=== PATIENT | male | born 1960 | race Caucasian/White ===

== ENCOUNTER 2024-08-17 14:23 | Outpatient (AMB) | payer BC, SELFPAY ==
--- NOTE | 2024-08-17 14:38 | MHC.PC.OV ---
Vital Signs 08/17/24 14:49 Height 5 ft 11.06 in Weight 251 lb BMI 34.9 BP 124/78 Blood Pressure Location Rt brachial Position Sitting Respiration 14 Pulse 82 Pulse Source Pulse Oximeter Temp 97.2 F Temp Source Oral Pulse Oximetry (%) 97 Oxygen Delivery Method Room Air Intake Visit Reasons: est care/requesting pe Intake Note: New patient visit. Tumbler Tender Required: No Allergies No Known Allergies Allergy (Verified 08/17/24 14:41) Medication List - Last Reconciled 08/17/24 by Debbie Sanders PA-C No Known Home Meds Tobacco use date assessed: 08/17/24 Dental Screening Dental Screen Date: 08/17/24 Did you have a dental visit in the last 12 months?: Yes Did you have a dental problem in the last 6 months where you did not have access to dental care?: No Was dental information given to patient?: Patient has dentist HPI est care/requesting pe HPI Details Patient is a 63-year-old male who presents today to [facility]. He is transferring from [facility]. CV: Blood pressure today in the office is 124/78. He is not on any antihypertensives or statin. No chest pain, shortness on breath or palpitations. Neuro: three years ago he noted toes felt cold. He states he had an exam at that time and nothing was noted to be abnormal. He states he gets tingling in the feet now x 1.5 years. No weakness, no pain from back, no numbness, discoloration, infections. MSK:He has noted over the last few months the right leg is larger than the left. He states it is at times achy in the calf. Swelling is worse by the end of day and better in the morning. No skin discoloration. He denies any trauma. Colonoscopy: overdue by year PSA: Overdue PFSH Family History (Updated 08/17/24 @ 14:55 by Melanie Crooks CMA) Mother HTN (hypertension) High blood cholesterol Diabetes Father Pacemaker Maternal Grandmother Breast cancer Skin cancer Paternal Grandfather No problems noted. Sister Diabetes Social History (Updated 08/17/24 @ 14:55 by Melanie Crooks CMA) Housing: Condominium Alcohol intake: current Patient Tobacco Use Status: Never used Tobacco e-Cigarette/Vaping Use: Never Used Second Hand Smoke Exposure: No service: No Current occupational status: employed Current occupation: school administer. Current occupational exposures/hazards: Yes Cognitive needs: No Hearing needs: No Vision needs: Yes (reading glasses ) Questionnaire PHQ-9 Over the last 2 weeks, how often have you been bothered by any of the following problems? 1. Little interest or pleasure in doing things: not at all 2. Feeling down, depressed, or hopeless: not at all 3. Trouble falling or staying asleep, or sleeping too much: several days 4. Feeling tired or having little energy: not at all 5. Poor appetite or overeating: not at all 6. Feeling bad about yourself - or that you are a failure or have let yourself or your family down: not at all 7. Trouble concentrating on things, such as reading the newspaper or watching television: not at all 8. Moving or speaking so slowly that other people could have noticed. Or the opposite - being so fidgety or restless that you have been moving around a lot more than usual: not at all 9. Thoughts that you would be better off or of hurting yourself in some way: not at all Total score: 1 Depression Screening Interpretation: Negative Depression Screening Done: Yes 11998 - PHQ-9 Billing: Yes Source: Developed by Drs. Yefri Dawson, Catrina De La Paz, Byron Ramos and colleagues, with an educational nacho from [employer]. Thrive Questionnaire Date Thrive assessed: 08/17/24 I am a: Patient What is your living situation today?: I have a steady place to live Within the past 12 months, did the food you bought not last and you didn't have the money to get more?: Never true Within the past 12 months, did you worry whether your food would run out before you got money to buy more?: Never true Do you have trouble paying for medicines?: No Do you have trouble getting transportation to medical appointments?: No Do you have trouble paying your heating and electricity bill?: No Do you have trouble taking care of your child, family member or friend?: No Do you have trouble with day-to-day activities such as bathing, preparing meals, shopping, managing finances, etc.?: No Are you currently unemployed and looking for a job?: No Are you interested in more education?: No Please select the resources that you would like help with: None Currently or been in a relationship where the following occur: No concerns reported THRIVE Score: 0 AUDIT C Alcohol Use Questionnaire (AUDIT-C) 1. How often do you have a drink containing alcohol?: 2-3 times a week 2. How many drinks containing alcohol do you have on a typical day when you are drinking?: 1 or 2 3. How often do you have six or more drinks on one occasion?: Less than monthly Total Score: 4 URSULA-7 AMB Questionnaire URSULA-7 Date URSULA - 7 assessed: 08/17/24 Feeling nervous, anxious, or on edge: 0 = Not at all Not being able to stop or control worryin = Not at all Worrying too much about different things: 0 = Not at all Trouble relaxin = Not at all Being so restless that it is hard to sit still: 0 = Not at all Becoming easily annoyed or irritable: 0 = Not at all Feeling afraid as if something awful might happen: 0 = Not at all Total URSULA-7 score (0-4 normal; 5-9 mild; 10-14 moderate; 15-21 severe): 0 Source: Developed by Drs. Yefri Dawson, Catrina De La Paz, Byron Ramos and colleagues, with an educational nacho from [employer]. URSULA-7 Assessment Billing URSULA-7 Assessment Tool: URSULA-7 Assessment 72498 Physical exam (Primary Care) Vital Signs: Last Vital Signs Temp 97.2 F 08/17/24 14:49 Pulse 82 08/17/24 14:49 Resp 14 08/17/24 14:49 BP 124/78 08/17/24 14:49 Pulse Ox 97 08/17/24 14:49 Oxygen Delivery Method Room Air 08/17/24 14:49 BMI result Body Mass Index 34.9 Tobacco/Smoking Status: Tobacco use Status Tobacco use date assessed 08/17/24 08/17/24 14:45 Patient Tobacco Use Status Never used Tobacco 08/17/24 14:55 e-Cigarette/Vaping Use Never Used 08/17/24 14:55 PHQ-9: PHQ-9 Score PHQ-9: Total score 1 08/17/24 15:13 Depression Screening Interpretation: Negative Thrive Assessment: Date of Thrive Assessment Date Thrive assessed 08/17/24 08/17/24 14:55 Currently or been in a relationship where the following occur: No concerns reported Const Orientation/consciousness: patient oriented x3 HENMT Ears: hearing grossly normal bilaterally Neck Thyroid: Thyroid normal Lymphatic: no lymphadenopathy noted Resp Auscultation: clear to auscultation bilaterally Cardio Rate: regular rate Rhythm: regular rhythm Heart sounds: S1 normal heart sound present and S2 normal heart sound present GI Inspection: Yes normal to inspection Palpation (GI): Soft to palpation and Other GI palpation findings present (nontender, no cva tenderness) Auscultation: normoactive bowel sounds Rectal Exam - Male: Yes deferred Skin General skin exam: no rashes or lesions noted Neuro Other: Vibratory sensation intact General: patient oriented x3, gait normal, moves all extremities, Normal light touch and pain sensation, no focal motor deficits, normal sensation to monofilament and deep tendon reflexes 2+ bilaterally Motor exam (neuro): 5/5 motor strength present throughout Extrem Other: Right calf is41.5 cm and left calf 37.5. DP pulses 2+ bilaterally. General: Yes capillary refill normal Coding Level of Care Code New Pt Level 4 (96269) Complex EM visit Add On G2211 Diagnoses Dyslipidemia E78.5 Peripheral neuropathy G62.9 Skin lesion L98.9 Pain and swelling of right lower leg M79.661; M79.89 Additional Codes URSULA-7 Assessment Billing - URSULA-7 Assessment Tool: URSULA-7 Assessment 04458 ([id number]) PHQ-9 - 50728 - PHQ-9 Billing: Yes ([id number]) Assessment & Plan Assessment & Plan (1) Dyslipidemia: Code(s): E78.5 - Hyperlipidemia, unspecified Category: Medical Plan: We will check labs today (2) Peripheral neuropathy: Code(s): G62.9 - Polyneuropathy, unspecified Category: Medical Plan: Labs ordered Appears neurovascularly intact today EMG ordered (3) Skin lesion: Code(s): L98.9 - Disorder of the skin and subcutaneous tissue, unspecified Category: Medical Plan: Referral to [facility] (4) Pain and swelling of right lower leg: Code(s): M79.661 - Pain in right lower leg; M79.89 - Other specified soft tissue disorders Category: Medical Plan: Ultrasound ordered Plan referral to GI for colonoscopy Short term follow up. Sooner if needed. Patient understands and agrees with the plan. Orders: Orders Complete Blood Count Auto Diff 08/17/24 E78.5 - Hyperlipidemia, unspecified, G62.9 - Polyneuropathy, unspecified Lipid Panel 08/17/24 E78.5 - Hyperlipidemia, unspecified, G62.9 - Polyneuropathy, unspecified TSH reflex Free T4 08/17/24 E78.5 - Hyperlipidemia, unspecified, G62.9 - Polyneuropathy, unspecified UA CC w/rflx Micro + Cult 08/17/24 E78.5 - Hyperlipidemia, unspecified, G62.9 - Polyneuropathy, unspecified, Z13.220 - Encounter for screening for lipoid disorders US venous duplex LE RT 08/17/24 M79.661 - Pain in right lower leg, M79.89 - Other specified soft tissue disorders Comprehensive [place]. Panel Fast 08/17/24 E78.5 - Hyperlipidemia, unspecified, G62.9 - Polyneuropathy, unspecified Hemoglobin A1c 08/17/24 E78.5 - Hyperlipidemia, unspecified, G62.9 - Polyneuropathy, unspecified, R73.01 - Impaired fasting glucose Vitamin B12 and Folate 08/17/24 E78.5 - Hyperlipidemia, unspecified, G62.9 - Polyneuropathy, unspecified IRON PROFILE 08/17/24 E78.5 - Hyperlipidemia, unspecified, G62.9 - Polyneuropathy, unspecified Lyme IgG/IgM w/reflex to WB 08/17/24 E78.5 - Hyperlipidemia, unspecified, G62.9 - Polyneuropathy, unspecified Prostate Specific Antigen Scr 08/17/24 Z01.89 - Encounter for other specified special examinations NE electromyogram (EMG) Today G62.9 - Polyneuropathy, unspecified Referrals Gastroenterology Referral Z12.11 - Encounter for screening for malignant neoplasm of colon Dermatology Referral L98.9 - Disorder of the skin and subcutaneous tissue, unspecified
[2024-08-17 14:49] VITALS: BP 124/78; PULSE 82; RESP 14; TEMP 36.2; O2SAT 97; BMI 34.9
--- OUTSIDE RECORDS SUMMARY | 2024-08-17 15:37 | XMS_ITS | Data Portability ---
Author Organization ANNITA Mckenna [facility], [address] Address [address] [place] [address] Care Team Providers Care Chair Lift Operator Name Role Phone PauloSYED ERICH Primary Care Provider Assessment No assessment recorded. Plan of Treatment Reminders Order Date Submit Date Provider Last Modified By Organization Details Last Modified Time Details Appointments None recorded. Lab None recorded. Referral dermatologi st referral 2023 024 [email or web address] [facility], [address], [place], [address], 4 13:54:26 Procedures None recorded. Surgeries None recorded. Imaging None recorded. Medication Orders fluticasone propionate 50 mcg/actuati on nasal spray,suspe nsion 2023 024 [email or web address] [facility]/Pharmacy #[id number], [address] [place], [address], 4 16:12:34 triamcinolo ne acetonide 0.1 % topical cream 2023 024 [facility]/Pharmacy #[id number], [address] [place], [address], 4 13:52:01 prednisone 10 mg tablet 2022 024 [facility]/Pharmacy #[id number], [address] [place], [address], 4 13:37:50 Patient TargetsNo targets recorded. Patient Instructions Encounter Date Encounter Id Patient Instructions Last Modified By Organization Details Last Modified Time 11/04/2022 [id number] poison devon, oak, and sumac: care instructions [email or web address] Not available 11/04/2022 17:00:40 06/30/2023 [id number] hives: care instructions [email or web address] Not available 06/30/2023 13:50:29 dermatitis: care instructions [email or web address] Not available 06/30/2023 13:51:59 Based on your presentation and exam - I am diagnosis you with Contact Dermatitis This most likely can be related to dyes or environmental exposures. The following recommendations will help you with your symptoms.: 1. Cool Compresses to the itchy areas. Heat will only make the rash. 2. Do not scratch or itch - this can lead to infection. 3. Take Antihistamines - like benadryl - this will help - but when the medications wear off the redness might return. You need to go directly to the ER if you develop: 1. Wheezing 2. Throat or tongue swelling 3. Difficulty breathing 4. If you pass out. 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 Procedure Notes None recorded. Medical Equipment None Reported. Allergies No known drug allergies Medications Name Sig Start Date Stop Date Status Note LastModified by Organization Details LastModified Time budesonide 32 mcg/actuati on nasal spray 1 spray in each nostril daily 2023 active Not Available Not Available Not Avai lable prednisone 10 mg tablet Take 4 tablets every day by oral route for 3 days. 06/29 completed Not Available Not Available Not Available triamcinolo ne acetonide 0.1 % topical cream APPLY A THIN LAYER TO THE AFFECTED AREA(S) BY TOPICAL ROUTE 2 TIMES PER DAY for 10-12 days 2023 active Not Available Not Available Not Avai lable fluticasone propionate 50 mcg/actuati on nasal spray,suspe nsion [place] 2 sprays every day by intranasa l route for 30 days. 2023 active Not Available Not Available Not Avai lable Vitals Date Recorded Body height Body mass index (BMI) Body weight Oxygen saturation Oxygen saturation in Arterial blood by Pulse oximetry Heart rate Respiratory rate Body temperature Systolic blood pressure Diastolic blood pressure Provider Name and Address Organization Details Last Updated DateTime 3 182.88 cm 31.2 kg/m2 451709. 25 g 97 % 97 % 63 /min 18 /min 98.1 [degF] 130 mm[Hg] 88 mm[Hg] LEON DEMPSEY MD - [facility] 3 16:41:03 Date Recorded Body height Body mass index (BMI) Body weight Pain severity - 0-10 verbal numeric rating [Score] - Reported Respiratory rate Body temperature Oxygen saturation Oxygen saturation in Arterial blood by Pulse oximetry Heart rate Systolic blood pressure Diastolic blood pressure Provider Name and Address Organization Details Last Updated DateTime 4 182.88 cm 32.5 kg/m2 770129. 17 g 0 18 /min 97.5 [degF] 96 % 96 % 72 /min 118 mm[Hg] 79 mm[Hg] ASHLEY HUNTER MD - [facility] 4 13:39:33 Date Recorded Body height Body mass index (BMI) Body weight Respiratory rate Body temperature Oxygen saturation Oxygen saturation in Arterial blood by Pulse oximetry Heart rate Pain severity - 0-10 verbal numeric rating [Score] - Reported Systolic blood pressure Diastolic blood pressure Provider Name and Address Organization Details Last Updated DateTime 4 182.88 cm 32.5 kg/m2 496585. 17 g 18 /min 98.8 [degF] 96 % 96 % 83 /min 0 128 mm[Hg] 86 mm[Hg] Sarah ARIZA - [facility] 4 15:36:05 Social History Question Answer Notes LastModified by Organizat ion Details LastModified Time Tobacco Smoking Status Never Smoker LEON lo PA [facility] 11/04/2022 16:39:05 What Is Your Level Of Alcohol Consumption? Occasional Information not available 11/04/2022 Are You Currently Employed? Yes Information not available 11/04/2022 Have You Had A Flu Shot This Season? Yes [email or web address] Information not available 07/20/2023 Have You Had Direct Contact, Or Contact During Intimacy, With Monkeypox Rash, Scabs, Or Body Fluids From A Person With Monkeypox? No Information not available 11/04/2022 What Was The Date Of Your Most Recent Tobacco Screening? 07/20/2023 [email or web address] Information not available 07/20/2023 Do You Use Any Illicit Or Recreational Drugs? No Information not available 11/04/2022 Have You Recently Traveled Abroad? No Information not available 11/04/2022 Are You Currently In School? No Information not available 11/04/2022 Do You Or Have You Ever Used Any Other Forms Of Tobacco Or Nicotine? No Information not available 11/04/2022 Sex: Unknown Functional Status None recorded. Mental Status None recorded. Family History Relationship Description Onset Age of this Age Resolved Age Notes LastModified by Organization Details LastModified Time Father No current problems or disability Not available 10/12 16:38:33 Mother No current problems or disability Not available 10/12 16:38:33 Medical History No medical history recorded. Immunizations Vaccine Type Date Status Note Provider Nam e and Address Organization Details Recorded Time COVID-19, mRNA, LNP-S, PF, 30 mcg/0.3 mL dose 06/27/2020 completed LEON lo PA [facility] 11/04/2022 16:38:21 COVID-19, mRNA, LNP-S, PF, 30 mcg/0.3 mL dose 07/18/2020 completed LEON lo PA [facility] 11/04/2022 16:38:21 COVID-19, mRNA, LNP-S, PF, 30 mcg/0.3 mL dose 10/30/2020 completed LEON DEMPSEY null, PA - [facility] 11/04/2022 16:38:21 COVID-19, mRNA, LNP-S, PF, 30 mcg/0.3 mL dose 02/25/2021 completed LEON DEMPSEY null, PA - [facility] 11/04/2022 16:38:21 COVID-19, mRNA, LNP-S, PF, 30 mcg/0.3 mL dose, rika-sucrose 07/24/2021 completed LEON DEMPSEY null, PA - [facility] 11/04/2022 16:38:21 COVID-19, mRNA, LNP-S, bivalent, PF, 30 mcg/0.3 mL dose 01/24/2022 completed LEON lo, PA - [facility] 11/04/2022 16:38:21 Tdap 10/10/2014 completed LEON lo, PA - [facility] 11/04/2022 16:38:21 Past Encounters Encounter ID Performer Location Encounter Start Date Encounter Closed Date Diagnosis/Indication Diagnosis SNOMED-CT Code Diagnosis ICD10 Code Diagnosis Note [id number] [facility] [address] [address] 02/04/2015 16:53:56 02/04/2015 17:37:[id number] [place] [address] [address] [address] 07/16/2016 17:50:27 07/16/2016 18:29:10 [id number] Haja Pollack MD [address] [facility] [address] [place] [address] 11/04/2022 16:20:04 11/04/2022 17:04:34 Contact dermatitis caused by plants 732158201 L25.5 Please follow up with PCP or Urgent Care in 3-5 days if no improvemen t or if any new symptoms occur that are concerning . [id number] ANNITA LLANOS [address] [place] [address] 06/30/2023 12:42:27 06/30/2023 13:54:26 Contact dermatitis [id number] L25.9 [id number] ANNITA Marroquin [address] [place] [address] 07/20/2023 15:20:55 07/20/2023 15:45:55 Upper respiratory infection [id number] J06.9 Patient presented with symptoms of upper respirator y infection. Advised to drink plenty of fluids, run a cool-mist humidifier in room at night, gargle salt water for sore throat, and get plenty of rest. Patient should avoid over-exert ion and reduce exposure to irritants such as smoke, cold, dry air, and dust.Treat ment currently involves symptomati c relief. Nasal sprays like nasonex and flonase (or generic) as well as neti pot to help clear sinuses Patient may take acetaminop hen or ibuprofen as directed to reduce fever and body aches.Anti histamine and decongesta nt usage was discussed and recommenda tions made.Quinton nt understood these instructio ns and will follow up in the office in 10 days to 2 weeks if symptoms not improving. ER if any shortness of breath/amol st pain or worsening. Thank you for using [employer] today, please feel free to contact our office if you have any questions or concerns. Health Concerns Section Related Observation LastModified by Organization Detai ls LastModified Time None Recorded Concern Status LastModified by Organization Details LastModified Time None Recorded Advance Directives Directive None Recorded Payers Insurance Date Sequence Insurance Name Policy Number Policy Jaime Covered Member ID Jaime Member ID Guarantor Name 07/20/2023 1 [facility]: O BLUE [facility] (O) [id number] Salvador Doss [id number] Salvador Doss Notes Date Note Type Note Provider Name and Address Organization Details Recorded Time 3 text/html UC Rash/Skin LesionReported bypatient.source of patient informationInformation obtained from patient; Patient arrived at Urgent Care ambulatory Location:whole body Quality:itchy;red;spreadin g Severity:moderate Duration:1 weeks Context:recent outdoor activity Haja Pollack MD [address] [place], [address], [place] - [facility] 11/04/2022 17:01:54 4 text/html UC Rash/Skin LesionReported bypatient.Notes:62 y.o male pt with h.o ongoing rash to anterior portion of right mid tib/fib that started one year ago. Pt was seen before and given cream which helped. But once he stops using the cream, rash returns. Pt denies pain or other sx's. ANNITA LLANOS [address] [place], [address], PA - [facility] 06/30/2023 17:18:18 4 text/html 62 y/o male here with cough, congestion and low grade temps for 2 days. Has had issues with pna in the past and wants to make sure his lungs are clear.Neg covid test x3 at home ANNITA Marroquin [address] [place], [address], PA - [facility] 07/20/2023 15:52:31
== END 2024-08-17 15:34 | disposition home or self-care (01) ==
LOC: HO.HMCFM 14:24
PROVIDERS: PCP Physician Assistant; Visit Provider Physician Assistant
DX: E78.5 Hyperlipidemia, unspecified (principal); G62.9 Polyneuropathy, unspecified; L98.9 Disorder of the skin and subcutaneous tissue, unspecified; M79.661 Pain in right lower leg; M79.89 Other specified soft tissue disorders

== ENCOUNTER → 2024-08-17 14:23 | Outpatient (BNVA) | payer BC, SELFPAY | PROVIDERS: PCP Physician Assistant; Visit Provider Physician Assistant | DX: Z76.89 Persons encountering health services in other specified circumstances (principal); E78.5 Hyperlipidemia, unspecified; G62.9 Polyneuropathy, unspecified; L98.9 Disorder of the skin and subcutaneous tissue, unspecified; M79.661 Pain in right lower leg; M79.89 Other specified soft tissue disorders | CPT/HCPCS: 96127 ==

== ENCOUNTER 2024-08-24 11:27 | Outpatient (REF) | payer BC, SELFPAY ==
--- NOTE | ~2024-08-24 | US_ITS ---
EXAMINATION: US LOWER EXTREMITY VEINS LIMITED FOLLOW UP RIGHT HISTORY: M79.661 - Pain in right lower leg COMPARISON: There are no prior studies for comparison. TECHNIQUE: Duplex and color Doppler sonographic examination of the deep venous system of the right lower extremity was performed. FINDINGS: The common femoral, superficial femoral, and popliteal veins are patent demonstrating normal compressibility, spontaneous flow, and augmentation. There is a normal color and spectral Doppler waveform appearance of the visualized deep venous system above the knee. The posterior tibial and peroneal veins are patent. US/US venous duplex LE RT IMPRESSION: No evidence of acute DVT in the right lower extremity. Electronically signed by: Yefri Guillaume MD 08/24/2024 12:15 PM EDT
--- OUTSIDE RECORDS SUMMARY | 2024-08-24 12:26 | XMS_ITS | Data Portability ---
Author Organization ANNITA Mckenna s, [address] Address [address] [place] [address] Care Team Providers Care Housekeeping Staff Name Role Phone PauloSYED ERICH Primary Care Provider Assessment No assessment recorded. Plan of Treatment Reminders Order Date Submit Date Provider Last Modified By Organization Details Last Modified Time Details Appointments None recorded. Lab None recorded. Referral dermatologi st referral 2023 024 [email or web address] [facility], [address], [place], [address], 4 13:54:26 Procedures None recorded. Surgeries None recorded. Imaging None recorded. Medication Orders fluticasone propionate 50 mcg/actuati on nasal spray,suspe nsion 2023 024 [email or web address] [facility]/Pharmacy #0838, [address] [place], [address], 4 16:12:34 triamcinolo ne acetonide 0.1 % topical cream 2023 024 [facility]/Pharmacy #0838, [address] [place], [address], 4 13:52:01 prednisone 10 mg tablet 2022 024 [facility]/Pharmacy #0838, [address] [place], [address], 4 13:37:50 Patient TargetsNo targets recorded. Patient Instructions Encounter Date Encounter Id Patient Instructions Last Modified By Organization Details Last Modified Time 11/04/2022 [id number] poison devon, oak, and sumac: care instructions [email or web address] Not available 11/04/2022 17:00:40 06/30/2023 [id number] hives: care instructions [email or web address] Not available 06/30/2023 13:50:29 dermatitis: care instructions [email or web address] Not available 06/30/2023 13:51:59 Based on your [...] Difficulty breathing 4. If you pass out. 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 25 g 97 % 97 % 63 /min 18 /min 98.1 [degF] 130 mm[Hg] 88 mm[Hg] LEON DEMPSEY [place] - [facility] 3 16:41:03 Date Recorded Body height Body mass index (BMI) Body weight Pain severity - 0-10 verbal numeric rating [Score] - Reported Respiratory rate Body temperature Oxygen saturation Oxygen saturation in Arterial blood by Pulse oximetry Heart rate Systolic blood pressure Diastolic blood pressure Provider Name and Address Organization Details Last Updated DateTime 4 182.88 cm 32.5 kg/m2 424615. 17 g 0 18 /min 97.5 [degF] 96 % 96 % 72 /min 118 mm[Hg] 79 mm[Hg] ASHLEY HUNTER [place] - [facility] 4 13:39:33 Date Recorded Body height Body mass index (BMI) Body weight Respiratory rate Body temperature Oxygen saturation Oxygen saturation in Arterial blood by Pulse oximetry Heart rate Pain severity - 0-10 verbal numeric rating [Score] - Reported Systolic blood pressure Diastolic blood pressure Provider Name and Address Organization Details Last Updated DateTime 4 182.88 cm 32.5 kg/m2 876617. 17 g 18 /min 98.8 [degF] 96 % 96 % 83 /min 0 128 mm[Hg] 86 mm[Hg] Sarah ARIZA - [facility] 4 15:36:05 Social History Question Answer Notes LastModified by Organizat ion Details LastModified Time Tobacco Smoking Status Never Smoker ANNITA Gayle [facility] 11/04/2022 16:39:05 Have You Had A Flu Shot This Season? Yes [email or web address] Information not available 07/20/2023 Have You Had Direct Contact, Or Contact During Intimacy, With Monkeypox Rash, Scabs, Or Body Fluids From A Person With Monkeypox? No Information not available 11/04/2022 What Was The Date Of Your Most Recent Tobacco Screening? 07/20/2023 Information not available 07/20/2023 Have You Recently Traveled Abroad? No Information not available 11/04/2022 Are You Currently In School? No Information not available 11/04/2022 Sex: Unknown Functional Status Question Answer Note LastModified by Organizat ion Details LastModified Time Do you use any illicit or recreational drugs? No Information not available 11/04/2022 Do you or have you ever used any other forms of tobacco or nicotine? No Information not available 11/04/2022 What is your level of alcohol consumption? Occasional Information not available 11/04/2022 Are you currently employed? Yes Information not available 11/04/2022 Mental Status None recorded. Family History Relationship [...] mL dose 06/27/2020 completed LEON lo [place] - [facility] 11/04/2022 16:38:21 COVID-19, mRNA, LNP-S, PF, 30 mcg/0.3 mL dose 07/18/2020 completed LEON lo [place] [facility] 11/04/2022 16:38:21 COVID-19, mRNA, LNP-S, PF, 30 mcg/0.3 mL dose 10/30/2020 completed LEON lo, [place] - [facility] 11/04/2022 16:38:21 COVID-19, mRNA, LNP-S, PF, 30 mcg/0.3 mL dose 02/25/2021 completed LEON lo, [place] - [facility] 11/04/2022 16:38:21 COVID-19, mRNA, LNP-S, PF, 30 mcg/0.3 mL dose, rika-sucrose 07/24/2021 completed LEON lo [place] - [facility] 11/04/2022 16:38:21 COVID-19, mRNA, LNP-S, bivalent, PF, 30 mcg/0.3 mL dose 01/24/2022 completed LEON lo, [place] - [facility] 11/04/2022 16:38:21 Tdap 10/10/2014 completed LEON lo, [place] - [facility] 11/04/2022 16:38:21 Past Encounters Encounter ID Performer Location Encounter Start Date Encounter Closed Date Diagnosis/Indication Diagnosis SNOMED-CT Code Diagnosis ICD10 Code Diagnosis Note [id number] [address] [place] [address] [address] [address] 02/04/2015 16:53:56 02/04/2015 17:37:[id number] [place] [address] [address] [address] 07/16/2016 17:50:27 07/16/2016 18:29:10 [id number] Haja Pollack [place] [address] [address] 11/04/2022 16:20:04 11/04/2022 17:04:34 Contact dermatitis caused by plants 979961137 L25.5 Please follow up with PCP or Urgent Care in 3-5 days if no improvemen t or if any new symptoms occur that are concerning . [id number] ANNITA LLANOS [address] [place] [address] 06/30/2023 12:42:27 06/30/2023 13:54:26 Contact dermatitis 58141187 L25.9 [id number] ANNITA Marroquin [address] [place] [address] 07/20/2023 15:20:55 07/20/2023 15:45:55 Upper respiratory infection 38807943 J06.9 Patient presented with symptoms of upper [...] pain or worsening. Thank you for using [employer] today, please feel free to contact our [...] Jaime Member ID Guarantor Name 07/20/2023 1 [place]: O BLUE [facility] (O) [id number] Salvador Doss [id number] Salvador Doss Notes Date Note Type Note Provider Name and Address Organization Details Recorded Time 3 text/html UC Rash/Skin LesionReported bypatient.source of patient informationInformation obtained from patient; Patient arrived at Urgent Care ambulatory Location:whole body Quality:itchy;red;spreadin g Severity:moderate Duration:1 weeks Context:recent outdoor activity Haja Pollack MD [address] [place], [address], [place] - [facility] 11/04/2022 17:01:54 4 text/html UC Rash/Skin LesionReported bypatient.Notes:62 y.o male pt with h.o ongoing rash to anterior portion of right mid tib/fib that started one year ago. Pt was seen before and given cream which helped. But once he stops using the cream, rash returns. Pt denies pain or other sx's. ANNITA LLANOS [address] [place], [address], [place] [employer] [facility] 06/30/2023 17:18:18 4 text/html 62 y/o male here with cough, congestion and low grade temps for 2 days. Has had issues with pna in the past and wants to make sure his lungs are clear.Neg covid test x3 at home ANNITA Marroquin [address] [place], [address], [place] - [facility] 07/20/2023 15:52:31
== END 2024-08-24 11:28 | disposition home or self-care (01) ==
LOC: HO.US 11:27
PROVIDERS: PCP Internal Medicine; Visit Provider Physician Assistant
DX: M79.661 Pain in right lower leg (principal); R60.0 Localized edema
CPT/HCPCS: 93971

== ENCOUNTER → 2024-08-24 11:34 | Outpatient (BNV) | payer BC, SELFPAY | PROVIDERS: PCP Internal Medicine; Visit Provider Radiology Diagnostic Radiology | DX: M79.661 Pain in right lower leg (principal) | CPT/HCPCS: 93971 ==

== ENCOUNTER 2024-09-13 07:55 | Outpatient (REF) | payer BC, SELFPAY ==
--- NOTE | 2024-09-13 07:58 | EMG_ITS ---
Bilateral tibial and peroneal motor studies were performed. Bilateral superficial peroneal and sural sensory studies were performed. Tibial H reflexes were obtained and paraspinal muscles were tested with a needle. 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 MD NGUYEN Araujo/GABBY / [id number]
--- OUTSIDE RECORDS SUMMARY | 2024-09-13 07:58 | XMS_ITS | Data Portability ---
Author Organization ANNITA Mckenna s, [address] Address [address] [place] [address] Care Team Providers Care Piper Installer Name Role Phone PauloSYED ERICH Primary Care Provider Assessment No assessment recorded. Plan of Treatment Reminders Order Date Submit Date Provider Last Modified By Organization Details Last Modified Time Details Appointments None recorded. Lab None recorded. Referral dermatologi st referral 2023 024 [email or web address] [facility], [address], [place], [address], 4 13:54:26 Procedures None recorded. Surgeries None recorded. Imaging None recorded. Medication Orders fluticasone propionate 50 mcg/actuati on nasal spray,suspe nsion [email or web address] [facility]/Pharmacy #0838, [address] [place], [address], 4 16:12:34 triamcinolo ne acetonide 0.1 % topical cream 2023 024 [facility]/Pharmacy #0838, [address] [place], [address], 4 13:52:01 prednisone 10 mg tablet 2022 024 [facility]/Pharmacy #0838, [address] [place], [address], 4 13:37:50 Patient TargetsNo targets recorded. Patient Instructions Encounter Date Encounter Id Patient Instructions Last Modified By Organization Details Last Modified Time 11/04/2022 [id number] poison devon, oak, and sumac: care instructions [email or web address] Not available 11/04/2022 17:00:40 06/30/2023 [id number] hives: care instructions [email or web address] Not available 06/30/2023 13:50:29 dermatitis: care instructions [email or web address] Not available 06/30/2023 13:51:59 Based on your [...] Difficulty breathing 4. If you pass out. 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 17 g 18 /min 97.5 [degF] 96 % 96 % 72 /min 118 mm[Hg] 79 mm[Hg] ASHLEY HUNTER [place] - [facility] 4 13:39:33 Date Recorded Body height Body mass index (BMI) Body weight Respiratory rate Body temperature Oxygen saturation Oxygen saturation in Arterial blood by Pulse oximetry Heart rate Systolic blood pressure Diastolic blood pressure Provider Name and Address Organization Details Last Updated DateTime 4 182.88 cm 32.5 kg/m2 604088. 17 g 18 /min 98.8 [degF] 96 % 96 % 83 /min 128 mm[Hg] 86 mm[Hg] Sarah ARIZA - [facility] 4 15:36:05 Date Recorded Body height Body mass index (BMI) Body weight Oxygen saturation Oxygen saturation in Arterial blood by Pulse oximetry Heart rate Respiratory rate Body temperature Systolic blood pressure Diastolic blood pressure Provider Name and Address Organization Details Last Updated DateTime 3 182.88 cm 31.2 kg/m2 767476. 25 g 97 % 97 % 63 /min 18 /min 98.1 [degF] 130 mm[Hg] 88 mm[Hg] LEON ARIZA - [facility] 3 16:41:03 Social History Question Answer Notes LastModified by Organizat ion Details LastModified Time Tobacco Smoking Status Never Smoker LEON lo [place] [facility] 11/04/2022 16:39:05 Have You Had A Flu Shot This Season? Yes Information not available 07/20/2023 Have You Had [...] PF, 30 mcg/0.3 mL dose 06/27/2020 completed ANNITA Gayle [facility] 11/04/2022 16:38:21 COVID-19, mRNA, LNP-S, PF, 30 mcg/0.3 mL dose 07/18/2020 completed LEON lo PA [facility] 11/04/2022 16:38:21 COVID-19, mRNA, LNP-S, PF, 30 mcg/0.3 mL dose 10/30/2020 completed LEON lo, [place] - [facility] 11/04/2022 16:38:21 COVID-19, mRNA, LNP-S, PF, 30 mcg/0.3 mL dose 02/25/2021 completed LEON DEMPSEY null, [place] - [facility] 11/04/2022 16:38:21 COVID-19, mRNA, LNP-S, PF, 30 mcg/0.3 mL dose, rika-sucrose 07/24/2021 completed LEON DEPMSEY null, [place] - [facility] 11/04/2022 16:38:21 COVID-19, mRNA, LNP-S, bivalent, PF, 30 mcg/0.3 mL dose 01/24/2022 completed LEON lo, [place] - [facility] 11/04/2022 16:38:21 Tdap 10/10/2014 completed LEON lo, [place] - [facility] 11/04/2022 16:38:21 Past Encounters Encounter ID Performer Location Encounter Start Date Encounter Closed Date Diagnosis/Indication Diagnosis SNOMED-CT Code Diagnosis ICD10 Code Diagnosis Note [id number] 2099[facility] [address] [address] 02/04/2015 16:53:56 02/04/2015 17:37:50 [id number] [facility] [address] [address] 07/16/2016 17:50:27 07/16/2016 18:29:10 [id number] Haja Pollack MD [address] [facility] [address] [place] [address] 11/04/2022 16:20:04 11/04/2022 17:04:34 Contact dermatitis caused by plants 107583280 L25.5 Please follow up with PCP or Urgent Care in 3-5 days if no improvemen t or if any new symptoms occur that are concerning . [id number] ANNITA LLANOS [address] [facility] [address] [place] [address] 06/30/2023 12:42:27 06/30/2023 13:54:26 Contact dermatitis 96283618 L25.9 [id number] ANNITA Marroquin [address] [facility] [address] [facility] [address] [address] 07/20/2023 15:20:55 07/20/2023 15:45:55 Upper respiratory infection 38808927 J06.9 Patient presented with symptoms of upper [...] pain or worsening. Thank you for using [employer] today, please feel free to contact our [...] Guarantor Name 07/20/2023 1 [place] O BLUE [facility] BLUE ([facility]) [id number] Salvador Doss [id number] Salvador Doss Notes Date Note Type Note Provider Name and Address Organization Details Recorded Time 3 text/html UC Rash/Skin LesionReported bypatient.source of patient informationInformation obtained from patient; Patient arrived at Urgent Care ambulatory Location:whole body Quality:itchy;red;spreadin g Severity:moderate Duration:1 weeks Context:recent outdoor activity Haja Pollack MD [address] [place], [address], [place] - [facility] 11/04/2022 17:01:54 4 text/html UC Rash/Skin LesionReported bypatient.Notes:62 y.o male pt with h.o ongoing rash to anterior portion of right mid tib/fib that started one year ago. Pt was seen before and given cream which helped. But once he stops using the cream, rash returns. Pt denies pain or other sx's. ANNITA LLANOS [address] [place], [address], [place] - [facility] 06/30/2023 17:18:18 4 text/html 62 y/o male here with cough, congestion and low grade temps for 2 days. Has had issues with pna in the past and wants to make sure his lungs are clear.Neg covid test x3 at home ANNITA Marroquin [address] [place], [address], [place] - [facility] 07/20/2023 15:52:31
== END 2024-09-13 07:56 | disposition home or self-care (01) ==
LOC: HO.NEURO 07:55
PROVIDERS: PCP Internal Medicine; Visit Provider Physician Assistant
DX: R20.2 Paresthesia of skin (principal); G62.9 Polyneuropathy, unspecified
CPT/HCPCS: 95886; 95911

== ENCOUNTER 2024-09-27 08:19 | Outpatient (REF) | payer BC, SELFPAY ==
--- OUTSIDE RECORDS SUMMARY | 2024-09-27 08:29 | XMS_ITS | Data Portability ---
Author Organization ANNITA Mckenna s, [address] Address [address] [place] [address] Care Team Providers Care Drafter (Cad) Electrical Name Role Phone PauloSYED ERICH Primary Care Provider [phone] Assessment No assessment recorded. Plan of Treatment Reminders Order Date Submit Date Provider Last Modified By Organization Details Last Modified Time Details Appointments None recorded. Lab None recorded. Referral dermatologi st referral 2023 024 [email or web address] [facility], [address], [place], [address], 4 13:54:26 Procedures None recorded. Surgeries None recorded. Imaging None recorded. Medication Orders fluticasone propionate 50 mcg/actuati on nasal spray,suspe nsion 2023 024 [email or web address] [facility]/Pharmacy #0838, [address] [place], [address], 4 16:12:34 triamcinolo ne acetonide 0.1 % topical cream 2023 024 [facility]/Pharmacy #0838, [address] [place], [address], 4 13:52:01 prednisone 10 mg tablet 2022 024 [facility]/Pharmacy #0838, [address] [place], [address], 4 13:37:50 Patient TargetsNo targets recorded. Patient Instructions Encounter Date Encounter Id Patient Instructions Last Modified By Organization Details Last Modified Time 11/04/2022 [id number] poison devon, oak, and sumac: care instructions [email or web address] Not available 11/04/2022 17:00:40 06/30/2023 [id number] hives: care instructions Not available 06/30/2023 13:50:29 dermatitis: care instructions [email or web address] Not available 06/30/2023 13:51:59 Based on your [...] Difficulty breathing 4. If you pass out. 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 17 g 18 /min 97.5 [degF] 96 % 96 % 72 /min 118 mm[Hg] 79 mm[Hg] ASHLEY HUNTER [place] - [facility] 4 13:39:33 Date Recorded Body height Body mass index (BMI) Body weight Respiratory rate Body temperature Oxygen saturation Oxygen saturation in Arterial blood by Pulse oximetry Heart rate Systolic blood pressure Diastolic blood pressure Provider Name and Address Organization Details Last Updated DateTime 4 182.88 cm 32.5 kg/m2 630315. 17 g 18 /min 98.8 [degF] 96 % 96 % 83 /min 128 mm[Hg] 86 mm[Hg] Sarah ARIZA - [facility] 4 15:36:05 Date Recorded Body height Body mass index (BMI) Body weight Oxygen saturation Oxygen saturation in Arterial blood by Pulse oximetry Heart rate Respiratory rate Body temperature Systolic blood pressure Diastolic blood pressure Provider Name and Address Organization Details Last Updated DateTime 3 182.88 cm 31.2 kg/m2 223586. 25 g 97 % 97 % 63 /min 18 /min 98.1 [degF] 130 mm[Hg] 88 mm[Hg] LEON ARIZA - [facility] 3 16:41:03 Social History Question Answer Notes LastModified by Organizat ion Details LastModified Time Tobacco Smoking Status Never Smoker LEON lo PA Bac[facility] 11/04/2022 16:39:05 Have You Had A Flu Shot This Season? Yes [email or web address] Information not available 07/20/2023 Have You Had Direct Contact, Or Contact During Intimacy, With Monkeypox Rash, Scabs, Or Body Fluids From A Person With Monkeypox? No Information not available 11/04/2022 What Was The Date Of Your Most Recent Tobacco Screening? 07/20/2023 [email or web address] Information not available 07/20/2023 Have You Recently [...] SNOMED-CT Code Diagnosis ICD10 Code Diagnosis Note [id number] 2099_[facility] [address] [address] 02/04/2015 16:53:56 02/04/2015 17:37:50 [id number] [facility] [address] [address] 07/16/2016 17:50:27 07/16/2016 18:29:10 [id number] Haja Pollack MD [address] [facility] [facility] [address] [place] [address] 11/04/2022 16:20:04 11/04/2022 17:04:34 Contact dermatitis caused by plants [id number] L25.5 Please follow up with PCP or Urgent Care in 3-5 days if no improvemen t or if any new symptoms occur that are concerning . [id number] ANNITA LLANOS [address] [facility] [address] [place] [address] 06/30/2023 12:42:27 06/30/2023 13:54:26 Contact dermatitis [id number] L25.9 [id number] ANNITA Marroquin [address] [facility] [address] [facility] [place] [address] 07/20/2023 15:20:55 07/20/2023 15:45:55 Upper respiratory infection 99359275 J06.9 Patient presented with symptoms of upper [...] pain or worsening. Thank you for using [employer] today, please feel free to contact our [...] Name 07/20/2023 1 [place] BLUE [facility] BLUE ([facility]) [id number] Salvador Doss [id number] Salvador Doss Notes Date Note Type Note Provider Name and Address Organization Details Recorded Time 3 text/html UC Rash/Skin LesionReported bypatient.source of patient informationInformation obtained from patient; Patient arrived at Urgent Care ambulatory Location:whole body Quality:itchy;red;spreadin g Severity:moderate Duration:1 weeks Context:recent outdoor activity Haja Pollack MD [address] [place], [address], [place] - [facility] 11/04/2022 17:01:54 4 text/html UC Rash/Skin LesionReported bypatient.Notes:62 y.o male pt with h.o ongoing rash to anterior portion of right mid tib/fib that started one year ago. Pt was seen before and given cream which helped. But once he stops using the cream, rash returns. Pt denies pain or other sx's. ANNITA LLANOS [address] [place], [address], [place] - [facility] 06/30/2023 17:18:18 4 text/html 62 y/o male here with cough, congestion and low grade temps for 2 days. Has had issues with pna in the past and wants to make sure his lungs are clear.Neg covid test x3 at home ANNITA Marroquin [address] [place], [address], [place] - [facility] 07/20/2023 15:52:31
[2024-09-27 11:43] LABS: Appearance Urine Clear; Color Urine Yellow; Glucose Urine UA Negative (Negative); Leukocyte Esterase Urine Negative (Negative); Nitrite Urine Negative (Negative); PH 6.5 (5.0-9.0); Urine Blood Negative (Negative); Urine Ketones Negative (Negative); Urine Protein Negative (Neg-Trace)
[2024-09-27 11:49] LABS: MANUAL DIFF FLAG NO
[2024-09-27 11:52] LABS: Basophils Percent Auto 0.7 % (0-2); Eosinophils Absolute Auto 0.1 X10*3/uL (0.0-0.4); Eosinophils Percent Auto 2.3 % (0-4); Hematocrit 44.1 % (42.0-52.0); Hemoglobin 15.4 g/dl (14.0-18.0); Imm Gran Abs Auto 0.01 X10*3/uL (0.00-0.03); Imm Gran Pct Auto 0.2 % (0.0-0.4); Lymphocytes Absolute Auto 1.2 X10*3/uL (1.2-4.9); Lymphocytes Percent Auto 26.9 % (20-40); Mean Corpuscular HGB Conc 34.9 g/dl (31.0-36.0); Mean Corpuscular Hemoglobin 31.3 pg (27.0-33.0); Mean Corpuscular Volume 89.6 fL (80.0-98.0); Mean Platelet Volume 10.1 fL (9.4-12.4); Monocytes Absolute Auto 0.4 X10*3/uL (0.1-1.2); Monocytes Percent Auto 8.3 % (2-11); Neutrophils Absolute Auto 2.7 x10*3/uL (2.0-8.3); Neutrophils Percent Auto 61.6 % (45-73); Platelet Count 202 X10*3/uL (160-400); Red Blood Count 4.92 X10*6/uL (4.60-5.80); Red Cell Distribution Width 12.5 % (11.0-16.0); White Blood Count 4.4 X10*3/uL (4.8-10.8)
[2024-09-27 12:09] LABS: Estimated Average Glucose 103 mg/dL; Hemoglobin A1c % 5.2 % (<6.0)
[2024-09-27 12:11] LABS: Alanine Aminotransferase 65 U/L (0-40); Albumin Level 4.4 g/dL (3.5-5.0); Alkaline Phosphatase 55 U/L (39-117); Anion Gap 11 (12-20); Aspartate Amino Transferase 39 U/L (5-37); Bilirubin Total 0.7 mg/dL (0.0-1.0); Blood Urea Nitrogen 13 mg/dL (9-16); Calcium 9.3 mg/dL (8.4-10.2); Carbon Dioxide 26 mmol/L (22-29); Chloride 109 mmol/L (96-108); Cholesterol 177 mg/dL (<200); Estimated Glomerular Filt Rate > 60; Glucose Fasting 96 mg/dL (60-99); HDL Cholesterol 49 mg/dL (>40); Iron 108 mcg/dL (45-160); LDL Cholesterol Calculated 110 mg/dL (<100); Percent Iron Saturation 34 % (15-50); Potassium 4.2 mmol/L (3.3-5.1); Sodium 142 mmol/L (135-145); Total Iron Binding Capacity 320 mcg/dL (228-428); Total Protein 6.6 g/dL (6.5-8.0); Triglycerides 90 mg/dL (<150); Unsaturated Iron Binding 212 ug/dL
[2024-09-27 12:29] LABS: TSH reflex Free T4 1.79 uIU/mL (0.32-4.0)
[2024-09-27 12:48] LABS: Folate 8.3 ng/mL (> or = 4.0); Prostate Specific Antigen Scr 0.34 ng/mL (<0.05-4.0); Vitamin B12 514 pg/mL (200-900)
[2024-09-28 07:14] LABS: Lyme Abs Screen <0.90 index
== END 2024-09-27 08:20 | disposition home or self-care (01) ==
LOC: HO.WFDLDS 08:19
PROVIDERS: Visit Provider Physician Assistant
DX: E78.5 Hyperlipidemia, unspecified (principal); G62.9 Polyneuropathy, unspecified; R73.01 Impaired fasting glucose; Z13.220 Encounter for screening for lipoid disorders; Z01.89 Encounter for other specified special examinations; Z12.5 Encounter for screening for malignant neoplasm of prostate
CPT/HCPCS: 36415; 80053; 80061; 81003; 82607; 82746; 83036; 83540; 84153; 84443; 85025; 86617; 86618

== ENCOUNTER 2024-10-13 08:35 | Outpatient (REF) | payer BC, SELFPAY ==
--- OUTSIDE RECORDS SUMMARY | 2024-10-13 08:43 | XMS_ITS | Data Portability ---
Author Organization [facility], [address] Address [address] [place] [address] Care Team Providers Care Director Of Marketing [employer] Performance Ads Name Role Phone ERICH SINGH Primary Care Provider Assessment No assessment recorded. Plan of Treatment Reminders Order Date Submit Date Provider Last Modified By Organization Details Last Modified Time Details Appointments None recorded. Lab None recorded. Referral dermatologi st referral 2023 024 [email or web address] [facility], [address], [place], [address], 4 13:54:26 Procedures None recorded. Surgeries None recorded. Imaging None recorded. Medication Orders fluticasone propionate 50 mcg/actuati on nasal spray,suspe nsion 2023 024 [email or web address] [facility]/Pharmacy #[id number], [address] [place], [address], 4 16:12:34 triamcinolo ne acetonide 0.1 % topical cream 2023 024 [facility]/Pharmacy #[id number], [address] [place], [address], 4 13:52:01 prednisone 10 mg tablet 2022 024 [facility]/Pharmacy #[id number], [address] [place], [address], 4 13:37:50 Patient TargetsNo targets recorded. Patient Instructions Encounter Date Encounter Id Patient Instructions Last Modified By Organization Details Last Modified Time 11/04/2022 [id number] poison devon, oak, and sumac: care instructions [email or web address] Not available 11/04/2022 17:00:40 06/30/2023 [id number] hives: care instructions [email or web address] Not available 06/30/2023 13:50:29 dermatitis: care instructions [email or web address] Not available 06/30/2023 13:51:59 Based on your [...] Difficulty breathing 4. If you pass out. 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 2023 active Not Available Not Available Not Avai lable Vitals Date Recorded Body height Body mass index (BMI) Body weight Respiratory rate Body temperature Oxygen saturation Oxygen saturation in Arterial blood by Pulse oximetry Heart rate Systolic And Diastolic Provider Name and Address Organization Details Last Updated DateTime 4 182.88 cm 32.5 kg/m2 127353. 17 g 18 /min 97.5 [degF] 96 % 96 % 72 /min 118/79 mm[Hg] ASHLEY ARIZA - [facility] 4 13:39:33 Date Recorded Body height Body mass index (BMI) Body weight Respiratory rate Body temperature Oxygen saturation Oxygen saturation in Arterial blood by Pulse oximetry Heart rate Systolic And Diastolic Provider Name and Address Organization Details Last Updated DateTime 4 182.88 cm 32.5 kg/m2 925786. 17 g 18 /min 98.8 [degF] 96 % 96 % 83 /min 128/86 mm[Hg] Sarah ARIZA - [facility] 4 15:36:05 Date Recorded Body height Body mass index (BMI) Body weight Oxygen saturation Oxygen saturation in Arterial blood by Pulse oximetry Heart rate Respiratory rate Body temperature Systolic And Diastolic Provider Name and Address Organization Details Last Updated DateTime 3 182.88 cm 31.2 kg/m2 364440. 25 g 97 % 97 % 63 /min 18 /min 98.1 [degF] 130/88 mm[Hg] LEON Ribera [facility] 3 16:41:03 Social History Question Answer Notes LastModified by Organizat ion Details LastModified Time Tobacco Smoking Status Never Smoker ANNITA Gayle [facility] 11/04/2022 16:39:05 Have You Had A Flu Shot This Season? Yes [email or web address] Information not available 07/20/2023 Have You Had Direct Contact, Or Contact During Intimacy, With Monkeypox Rash, Scabs, Or Body Fluids From A Person With Monkeypox? No Information not available 11/04/2022 What Was The Date Of Your Most Recent Tobacco Screening? 07/20/2023 [email or web address] Information not available 07/20/2023 Have You Recently [...] mcg/0.3 mL dose 06/27/2020 completed ANNITA Gayle - [facility] 11/04/2022 16:38:21 COVID-19, mRNA, LNP-S, PF, 30 mcg/0.3 mL dose 07/18/2020 completed ANNITA Gayle [facility] 11/04/2022 16:38:21 COVID-19, mRNA, LNP-S, PF, 30 mcg/0.3 mL dose 10/30/2020 ANNITA Mckay - [facility] 11/04/2022 16:38:21 COVID-19, mRNA, LNP-S, PF, 30 mcg/0.3 mL dose 02/25/2021 completed LEON lo, [place] - [facility] 11/04/2022 16:38:21 COVID-19, mRNA, LNP-S, PF, 30 mcg/0.3 mL dose, rika-sucrose 07/24/2021 completed LEON lo, PA - [facility] 11/04/2022 16:38:21 COVID-19, mRNA, LNP-S, bivalent, PF, 30 mcg/0.3 mL dose 01/24/2022 completed LEON lo, PA - [facility] 11/04/2022 16:38:21 Tdap 10/10/2014 completed LEON lo, PA - [facility] 11/04/2022 16:38:21 Past Encounters Encounter ID Performer Location Encounter Start Date Encounter Closed Date Diagnosis/Indication Diagnosis SNOMED-CT Code Diagnosis ICD10 Code [id number] [facility] [address] [address] 02/04/2015 16:53:56 02/04/2015 17:37:50 [id number] [facility] [address] [address] 07/16/2016 17:50:27 07/16/2016 18:29:10 [id number] Haja Pollack MD [address] [address] 11/04/2022 16:20:04 11/04/2022 17:04:34 Contact dermatitis caused by plants 096374980 L25.5 Please follow up with PCP or Urgent Care in 3-5 days if no improvemen t or if any new symptoms occur that are concerning . [id number] ANNITA LLANOS [address] [place] [address] 06/30/2023 12:42:27 06/30/2023 13:54:26 Contact dermatitis 29440101 L25.9 [id number] ANNITA Marroquin [address] [place] [address] 07/20/2023 15:20:55 07/20/2023 15:45:55 Upper respiratory infection 29273967 J06.9 Patient presented with symptoms of upper [...] usage was discussed and recommenda tions made.Quinton hobbs understood these instructio ns and will follow up in the office in 10 days to 2 weeks if symptoms not improving. ER if any shortness of breath/amol st pain or worsening. Thank you for using [facility] today, please feel free to contact our [...] Jaime Member ID Guarantor Name 07/20/2023 1 [facility]: O [facility] [id number] Salvador Doss [id number] Salvador Doss Notes Date Note Type Note Provider Name and Address Organization Details Recorded Time 3 text/html UC Rash/Skin LesionReported bypatient.source of patient informationInformation obtained from patient; Patient arrived at Urgent Care ambulatory Location:whole body Quality:itchy;red;spreadin g Severity:moderate Duration:1 weeks Context:recent outdoor activity Haja Pollack MD [address] [place], [address], [place] [facility] 11/04/2022 17:01:54 4 text/html UC Rash/Skin LesionReported bypatient.Notes:62 y.o male pt with h.o ongoing rash to anterior portion of right mid tib/fib that started one year ago. Pt was seen before and given cream which helped. But once he stops using the cream, rash returns. Pt denies pain or other sx's. ANNITA LLANOS [address] [place], [address], [place] [facility] 06/30/2023 17:18:18 4 text/html 62 y/o male here with cough, congestion and low grade temps for 2 days. Has had issues with pna in the past and wants to make sure his lungs are clear.Neg covid test x3 at home ANNITA Marroquin [address] [place], [address], [facility] 07/20/2023 15:52:31
[2024-10-13 11:29] LABS: Alanine Aminotransferase 59 U/L (0-40); Albumin Level 4.5 g/dL (3.5-5.0); Alkaline Phosphatase 50 U/L (39-117); Aspartate Amino Transferase 33 U/L (5-37); Total Protein 6.6 g/dL (6.5-8.0)
[2024-10-13 11:53] LABS: HBsAGNum1 0.35 S/CO (0.00-0.99); Hepatitis B Surface Antigen Negative (Negative); ~HepC Num1 0.09 S/CO (0.00-0.79); ~Hepatitis C Antibody Nonreactive (Nonreactive)
[2024-10-13 11:55] LABS: Ferritin 141 ng/mL (20-250); Gamma Glutamyl Transpeptidase 28 U/L (11-51)
== END 2024-10-13 08:36 | disposition home or self-care (01) ==
LOC: HO.WFDLDS 08:35
PROVIDERS: Visit Provider Physician Assistant
DX: R94.5 Abnormal results of liver function studies (principal)
CPT/HCPCS: 36415; 80076; 82728; 82977; 86803; 87340

== ENCOUNTER 2024-11-22 08:18 | Outpatient (REF) | payer BC, SELFPAY ==
--- NOTE | ~2024-11-22 | US_ITS ---
EXAMINATION: US ABDOMEN COMPLETE WITH LIVER ELASTOGRAPHY HISTORY: R79.89 - Other specified abnormal findings of blood chemistry TECHNIQUE: Real-time grayscale ultrasound imaging of the abdomen was performed and images were reviewed. COMPARISON: There are no prior studies available for comparison. FINDINGS: Liver: The right lobe of the liver measures 18.5 cm in size. The left lobe of the liver measures 11.2 cm in size. The liver demonstrates increased echotexture, consistent with steatosis. No focal mass or intrahepatic biliary ductal dilatation is identified. There is normal hepatopedal flow in the portal vein. Ultrasound elastography of the liver was performed with 10 separate measurements of the liver parenchyma with the patient in the supine position. Measurements were obtained approximately 2 cm below Ashwini's capsule and perpendicular to the capsule. The median shear wave velocity is 1.23 m/s. The interquartile range/median (IQR/median) is 0.08. Gallbladder and biliary tree: The gallbladder is unremarkable, without evidence of calculi, wall thickening, or pericholecystic fluid. There is no sonographic Pettit sign. The common bile duct is normal in caliber measuring 3 mm. Kidneys: The right kidney measures 13.0 cm in length. The left kidney measures 13.2 cm in length. The kidneys are unremarkable, without evidence of masses, hydronephrosis, or calculi. Pancreas: The pancreatic head and neck are unremarkable. The remainder of the pancreas is obscured by bowel gas. Spleen: The spleen is top normal in size and contour, measuring 12.0 cm in length. Abdominal aorta and inferior vena cava: The visualized portions of the abdominal aorta and inferior vena cava are normal in caliber. There is no free fluid in the abdomen. US/US abdomen comp w elastography IMPRESSION: Hepatomegaly and hepatic steatosis. Borderline splenomegaly. The median shear wave velocity in the liver is 1.23 m/s, corresponding to a median liver stiffness of 4.62 kPa. The IQR/median value is 0.08. This is indicative of a quality data set. Findings are indicative of a normal elastography value with a low likelihood of severe fibrosis or cirrhosis. REFERENCE: Society of Radiologists in Ultrasound Liver Stiffness Thresholds (2020): LIVER STIFFNESS THRESHOLDS: *Shear wave velocity less than 1.3 m/s (Liver Stiffness equal or less than 5 kPa): High probability of being normal. *Shear wave velocity less than 1.7 m/s (Liver Stiffness less than 9 kPa): In the absence of other known clinical signs, rules out compensated advanced chronic liver disease. *Shear wave velocity between 1.7-2.1 m/s (Liver Stiffness 9-13 kPa): Suggestive of compensated advanced chronic liver disease but need further test for confirmation. *Shear wave velocity between 2.1-2.4 m/s (Liver Stiffness 13-17 kPa): Rules in compensated advanced chronic liver disease. *Shear wave velocity greater than 2.4 m/s (Liver Stiffness over 17 kPa): Suggestive of clinically significant portal hypertension. QUALITY OF DATA SET: *IQR/Median value equal or less than 0.30 implies a quality data set. *IQR/Median value over 0.30 implies a poor quality data set. SIGNIFICANT CHANGE FROM PRIOR EXAM: Significant change if liver stiffness measurement is 10% or greater from prior exam. OTHER CONSIDERATIONS: The stage of liver fibrosis may be overestimated in the setting of acute hepatitis, liver inflammation, elevated liver function tests, hepatic vascular congestion, obstructive cholestasis, non-fasting state, and infiltrative diseases such as amyloidosis and lymphoma. In some patients with NAFLD, the liver stiffness thresholds for compensated advanced chronic liver disease may be lower. In causes other than viral hepatitis and NAFLD, liver stiffness thresholds are not well established. Electronically signed by: Yefri Guillaume MD 11/22/2024 09:17 AM EDT
--- OUTSIDE RECORDS SUMMARY | 2024-11-22 08:28 | XMS_ITS ---
Author Name [facility] Organization Unknown Care Team Organization Name Specialty Phone Email Start Date End Da susan [facility] Termed, PROVIDER Primary Care 04/21/202211/11 [facility] ELIZABET GRIGSBY Primary Care 02/18/2022 11/30/2023
== END 2024-11-22 08:19 | disposition home or self-care (01) ==
LOC: HO.US 08:18
PROVIDERS: PCP Internal Medicine; Visit Provider Physician Assistant
DX: R79.89 Other specified abnormal findings of blood chemistry (principal)
CPT/HCPCS: 76700; 76981

== ENCOUNTER → 2024-11-22 08:20 | Outpatient (BNV) | payer BC, SELFPAY | PROVIDERS: PCP Internal Medicine; Visit Provider Radiology Diagnostic Radiology | DX: R79.89 Other specified abnormal findings of blood chemistry (principal) | CPT/HCPCS: 76700 ==

== ENCOUNTER 2024-12-22 12:17 | Outpatient (AMB) | payer BC, SELFPAY ==
--- NOTE | 2024-12-22 12:30 | MHC.PC.OV ---
Vital Signs 12/22/24 12:31 Height 5 ft 11.6 in Weight 239 lb 6 oz BMI 32.8 BP 124/76 Blood Pressure Location Rt brachial Position Sitting Respiration 14 Pulse 71 Pulse Source Pulse Oximeter Temp 98.4 F Temp Source Oral Pulse Oximetry (%) 97 Oxygen Delivery Method Room Air Intake Visit Reasons: f/u and physical Intake Note: Physical Manager Mass Required: No Allergies No Known Allergies Allergy (Verified 12/22/24 12:32) Tobacco use date assessed: 12/22/24 Dental Screening Dental Screen Date: 08/17/24 HPI f/u and physical HPI Details Patient is a 64-year-old male who presents today for a physical exam. CV: Blood pressure today in the office is 124/76. He is not on any antihypertensives or statin. No chest pain, shortness on breath or palpitations. Neuro: three years ago he noted toes felt cold. He states he had an exam at that time and nothing was noted to be abnormal. He states he gets tingling in the feet now x 1.5 years. No weakness, no pain from back, no numbness, discoloration, infections. 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 Colonoscopy: getting the consult next week PSA: Up-to-date [facility] Family History (Updated 08/17/24 @ 14:55 by Melanie Crooks CMA) Mother HTN (hypertension) High blood cholesterol Diabetes Father Pacemaker Maternal Grandmother Breast cancer Skin cancer Paternal Grandfather No problems noted. Sister Diabetes Social History (Updated 08/17/24 @ 14:55 by Melanie Crooks CMA) Housing: Condominium Alcohol intake: current Patient Tobacco Use Status: Never used Tobacco e-Cigarette/Vaping Use: Never Used Second Hand Smoke Exposure: No service: No Current occupational status: employed Current occupation: school administer. Current occupational exposures/hazards: Yes Cognitive needs: No Hearing needs: No Vision needs: Yes (reading glasses ) Questionnaire Thrive Questionnaire Date Thrive assessed: 08/17/24 I am a: Patient What is your living situation today?: I have a steady place to live Within the past 12 months, did the food you bought not last and you didn't have the money to get more?: Never true Within the past 12 months, did you worry whether your food would run out before you got money to buy more?: Never true Do you have trouble paying for medicines?: No Do you have trouble getting transportation to medical appointments?: No Do you have trouble paying your heating and electricity bill?: No Do you have trouble taking care of your child, family member or friend?: No Do you have trouble with day-to-day activities such as bathing, preparing meals, shopping, managing finances, etc.?: No Are you currently unemployed and looking for a job?: No Are you interested in more education?: No Please select the resources that you would like help with: None Currently or been in a relationship where the following occur: No concerns reported THRIVE Score: 0 AUDIT C Alcohol Use Questionnaire (AUDIT-C) 1. How often do you have a drink containing alcohol?: 2-3 times a week 2. How many drinks containing alcohol do you have on a typical day when you are drinking?: 1 or 2 3. How often do you have six or more drinks on one occasion?: Never Total Score: 3 URSULA-7 AMB Questionnaire URSULA-7 Date URSULA - 7 assessed: 08/17/24 Source: Developed by Drs. Yefri Dawson, Catrina De La Paz, Byron Ramos and colleagues, with an educational nacho from [facility]. Physical exam (Primary Care) Vital Signs: Last Vital Signs Temp 98.4 F 12/22/24 12:31 Pulse 71 12/22/24 12:31 Resp 14 12/22/24 12:31 BP 124/76 12/22/24 12:31 Pulse Ox 97 12/22/24 12:31 Oxygen Delivery Method Room Air 12/22/24 12:31 BMI result Body Mass Index 32.8 Tobacco/Smoking Status: Tobacco use Status Tobacco use date assessed 12/22/24 12/22/24 12:35 Patient Tobacco Use Status Never used Tobacco 12/22/24 12:35 e-Cigarette/Vaping Use Never Used 12/22/24 12:35 Thrive Assessment: Date of Thrive Assessment Date Thrive assessed 08/17/24 12/22/24 12:35 Currently or been in a relationship where the following occur: No concerns reported Const Orientation/consciousness: patient oriented x3 HENMT Ears: hearing grossly normal bilaterally and TM's normal bilaterally General nose exam: No nasal polyps present Face and sinus: Yes sinuses nontender Mouth: Normal oral and palatal mucosa present Eyes Pupils: Equal, round and reactive pupils present EOM: EOMs intact bilaterally Neck Neck: Yes full ROM and Yes no lymphadenopathy Thyroid: Thyroid normal Chest Chest palpation & inspection: normal inspection of the chest Resp Auscultation: clear to auscultation bilaterally Cardio Rate: regular rate Rhythm: regular rhythm Heart sounds: S1 normal heart sound present and S2 normal heart sound present Peripheral pulses: Peripheral pulses 2+ throughout GI Other: Soft, nontender Auscultation: normal bowel sounds Rectal Exam - Male: Yes deferred General: Yes no CVA tenderness Back/Spine/Pelvis Other: Nontender Back: no CVA tenderness Skin General skin exam: no rashes or lesions noted Neuro General: patient oriented x3, gait normal, CN's II-XI intact bilaterally and deep tendon reflexes 2+ bilaterally Cranial nerves: Yes Equal, round and reactive pupils present Motor exam (neuro): 5/5 motor strength present throughout Sensory Exam: double simultaneous stimulation for sensation normal Coordination: [id number] test normal and Romberg test negative Extrem General: Yes normal to inspection and Yes full ROM Psych Affect: normal affect Attitude: cooperative Thought process: Normal thought process present Thought content: Normal thought content present Insight: Good insight present (Psych) Judgement: Good judgement present (Psych) Results Reviewed Results Reviewed: Laboratory Tests 09/27/24 10/13/24 08:25 08:37 WBC 4.4 L RBC 4.92 Hgb 15.4 Hct 44.1 Plt Count 202 Sodium 142 Potassium 4.2 Chloride 109 H Carbon Dioxide 26 Anion Gap 11 L BUN 13 Creatinine 0.85 Estimated GFR > 60 Fasting Glucose 96 Hemoglobin A1c % 5.2 Iron 108 Ferritin 141 Total Bilirubin 0.8 Direct Bilirubin 0.3 GGT 28 AST 39 H 33 ALT 65 H 59 H Triglycerides 90 Cholesterol 177 LDL Cholesterol, Calc 110 H HDL Cholesterol 49 PSA Screen 0.34 Vitamin B12 514 TSH 1.79 Coding Level of Care Code Est Pt Prev Care 40-64y(89241) Diagnoses Routine general medical examination at a health care facility Z00.00 Elevated LFTs R79.89 Assessment & Plan Assessment & Plan (1) Routine general medical examination at a health care facility: Code(s): Z00.00 - Encounter for general adult medical examination without abnormal findings Plan: Health maintenance reviewed Labs reviewed (2) Elevated LFTs: Code(s): R79.89 - Other specified abnormal findings of blood chemistry Category: Medical Plan: Has a referral to GI Reviewed ultrasound We will recheck labs as he has been working on diet and exercise Orders: Orders Liver Panel Today R79.89 - Other specified abnormal findings of blood chemistry
[2024-12-22 12:31] VITALS: BP 124/76; PULSE 71; RESP 14; TEMP 36.9; O2SAT 97; BMI 32.8
== END 2024-12-22 12:59 | disposition home or self-care (01) ==
LOC: HO.HMCFM 12:18
PROVIDERS: PCP Physician Assistant; Visit Provider Physician Assistant
DX: Z00.00 Encounter for general adult medical examination without abnormal findings (principal); R79.89 Other specified abnormal findings of blood chemistry

== ENCOUNTER 2024-12-28 07:37 | Outpatient (REF) | payer BC, SELFPAY ==
[2024-12-28 11:47] LABS: Alanine Aminotransferase 38 U/L (0-40); Albumin Level 4.4 g/dL (3.5-5.0); Alkaline Phosphatase 55 U/L (39-117); Aspartate Amino Transferase 26 U/L (5-37); Total Protein 6.5 g/dL (6.5-8.0)
== END 2024-12-28 07:38 | disposition home or self-care (01) ==
LOC: HO.WFDLDS 07:37
PROVIDERS: Visit Provider Physician Assistant
DX: R79.89 Other specified abnormal findings of blood chemistry (principal)
CPT/HCPCS: 36415; 80076

== ENCOUNTER 2024-12-30 13:36 | Outpatient (AMB) | payer BC, SELFPAY ==
--- NOTE | 2024-12-30 13:37 | A.OFFVIS_ITS ---
Vital Signs 12/30/24 13:39 Height 5 ft 11.6 in Weight 240 lb 4.862 oz BMI 33.0 BP 128/89 Blood Pressure Location Lt brachial Position Sitting Pulse 66 Intake Visit Reasons: colo screening Intake Note: Salvador presents in the office as a colonoscopy screening. CC: Resource Recovery Engineer Required: No Allergies No Known Allergies Allergy (Verified 12/22/24 12:32) HPI HPI colo screening: Details: 64 year old? male with past medical history of dyslipidemia, peripheral neuropathy is here today for pre colonoscopy screening.? Patient was sent to us by his PCP.? Patient had a normal colonoscopy 10 years ago.? Patient denies any gastrointestinal symptoms in the past or at present.? Denies any personal or family history of gastrointestinal disease, colon polyps, or CRC.? Denies history of difficulty with sedation or anesthesia in the past.? Negative for history of sleep apnea.? Denies any history of cardiac, renal, pulmonary, or hepatic disease.?? No history of infectious? diseases like hepatitis A, B, C, HIV or tuberculosis.? Patient is not on any anticoagulation PFSH Surgical History (Updated 12/30/24 @ 13:40 by KANE Low) Hx of colonoscopy Family History Mother HTN (hypertension) High blood cholesterol Diabetes Father Pacemaker Maternal Grandmother Breast cancer Skin cancer Paternal Grandfather No problems noted. Sister Diabetes Social History Housing: Condominium Alcohol intake: current Patient Tobacco Use Status: Never used Tobacco e-Cigarette/Vaping Use: Never Used Second Hand Smoke Exposure: No service: No Current occupational status: employed Current occupation: school administer. Current occupational exposures/hazards: Yes Cognitive needs: No Hearing needs: No Vision needs: Yes (reading glasses ) Review of Systems Const Denies weight gain and Denies weight loss ENT Reports no additional complaints, Denies dysphagia and Denies odynophagia Card Reports no additional complaints Resp Reports no additional complaints GI Denies abdominal pain, Denies belching, Denies melena, Denies bloating, Denies change in bowel habits, Denies dysphagia, Denies excessive flatus, Denies dyspepsia, Denies heartburn, Denies diarrhea, Denies loose stools, Denies nausea, Denies odynophagia and Denies vomiting Reports no additional complaints Musc Reports no additional complaints Neuro Reports no additional complaints Psych Reports no additional complaints Endo Reports no additional complaints Physical Exam Vital Signs: Last Vital Signs Pulse 66 12/30/24 13:39 BP 128/89 12/30/24 13:39 BMI result Body Mass Index 33.0 Const General: healthy appearing, no acute distress and well developed Nutritional Appearance: well nourished and obese Orientation/consciousness: patient oriented x3 Resp Effort & Inspection: normal respiratory effort, able to speak in complete sentences, no tracheal deviation and symmetric chest movement Auscultation: clear to auscultation bilaterally Cardio Rate: regular rate GI Inspection: Yes normal to inspection, No distended and Yes obesity Palpation (GI): Soft to palpation, not firm, nontender and No hepatosplenomegaly present Auscultation: normal bowel sounds General: Yes no CVA tenderness Back/Spine/Pelvis Back: no CVA tenderness Skin General skin exam: elasticity normal, turgor normal and dry skin Neuro General: patient oriented x3 Psych Appearance: grossly normal Mental Status: mental status grossly normal Assessment & Plan Assessment & Plan (1) Screen for colon cancer: Code(s): Z12.11 - Encounter for screening for malignant neoplasm of colon Plan Patient denies any GI, cardiac or respiratory symptoms.? Denies any issues with anesthesia in the past.? Denies any history of sleep apnea.? No history infectious diseases in the past or present.? Not on any anticoagulation therapy.? No family or personal history of colon cancer or polyps.? Patient denies melena, hematochezia, unintentional weight loss or ribbon like stools.? Discussed at length the pre-procedure,? prep, diet & medications as well as what to expect prior, during and after the procedure.?? Stressed the importance of good bowel prep.? Recommended the use of Vaseline or Calmoseptine OTC & baby wipes with bowel movements to promote comfort.? ?Patient verbalizes understanding and agrees to plan of care.? He was given the opportunity to ask questions and all questions answered.? We will see him after the procedure.? Orders: Referrals GI Procedure Notification Z12.11 - Encounter for screening for malignant neoplasm of colon Medications: New polyethylene glycol 3350 (Miralax) As directed by gastroenterology department at [facility] 238 grams PO ONCE 238 grams 0RF Z12.11 - Encounter for screening for malignant neoplasm of colon bisacodyl (Dulcolax (bisacodyl)) take 4 tabs at noon the day before your colonoscopy 20 mg (4 x 5 mg) PO ONCE 4 tabs 0RF constipation 1 day Z12.11 - Encounter for screening for malignant neoplasm of colon Coding Level of Care Code New Pt Level 3 (44142) Diagnoses Screen for colon cancer Z12.11 Time Spent (min) 40 Comment 30 minutes spent with patient and additional 10 minutes spent reviewing his records
[2024-12-30 13:39] VITALS: BP 128/89; PULSE 66; BMI 33.0
== END 2024-12-30 18:28 | disposition home or self-care (01) ==
LOC: HO.HGI 13:37
PROVIDERS: PCP Internal Medicine; Visit Provider Nurse Practitioner Family
DX: Z01.818 Encounter for other preprocedural examination (principal); Z12.11 Encounter for screening for malignant neoplasm of colon
CPT/HCPCS: S0285

== ENCOUNTER 2025-02-14 08:22 | Day surgery (SDC) | payer BC, SELFPAY ==
[2025-01-17 13:41] VITALS: BMI 33.0
--- NOTE | 2025-02-13 09:42 | HO.ANESPROP2 ---
Documented by User: Leah Bernard NP 02/13/25 09:42 HPI - Anesthesia Eval Consult details Narrative: 64yo M for Colonoscopy [facility] Active Problems Active Problems: All Active Problems Elevated LFTs (Acute) Paresthesia of both feet (Acute) Pain and swelling of right lower leg (Acute) Skin lesion (Acute) Peripheral neuropathy (Acute) Dyslipidemia (Acute) Past Medical History Medical History Dyslipidemia Peripheral neuropathy Family History Family History Mother HTN (hypertension) High blood cholesterol Diabetes Father Pacemaker Maternal Grandmother Breast cancer Skin cancer Paternal Grandfather No problems noted. Sister Diabetes Surgical History Surgical History H/O knee surgery History of ankle surgery Hx of colonoscopy Social History Social History Housing: Condominium Alcohol intake: current Patient Tobacco Use Status: Never used Tobacco e-Cigarette/Vaping Use: Never Used Second Hand Smoke Exposure: No Use of substances other than those prescribed or required for medical reasons: No Are you DNR?: No Advance Directives: No Advance Directives Information Provided: Yes service: No Current occupational status: employed Current occupation: school administer. Current occupational exposures/hazards: Yes Cognitive needs: No Hearing needs: No Vision needs: Yes (reading glasses ) Meds Allergies Allergy/AdvReac Type Severity Reaction Status Date / Time No Known Allergies Allergy Verified 12/22/24 12:32 Home Medications ?Medication ?Instructions ?Recorded ?Confirmed ?Last Taken ?Type No Known Home Meds 02/14/25 02/14/25 Unknown History Exam Height,Weight and Vital Signs: Height 5 ft 11.6 in Weight 109 kg Assessment and Plan Assessment Anesthesia Assessment: Chart Reviewed Documented by User: Rudy Scanlon MD 02/14/25 11:43 [facility] Past Medical History Medical History Dyslipidemia Peripheral neuropathy Functional capacity: independent ambulation Family History Family History Mother HTN (hypertension) High blood cholesterol Diabetes Father Pacemaker Maternal Grandmother Breast cancer Skin cancer Paternal Grandfather No problems noted. Sister Diabetes Family history of problems with anesthesia: No Surgical History Surgical History H/O knee surgery History of ankle surgery Hx of colonoscopy History of Problems with Anesthesia: No Social History Social History [facility] Alcohol intake: current Patient Tobacco Use Status: Never used Tobacco e-Cigarette/Vaping Use: Never Used Second Hand Smoke Exposure: No Use of substances other than those prescribed or required for medical reasons: No Are you DNR?: No Advance Directives: No Advance Directives Information Provided: Yes service: No Current occupational status: employed Current occupation: school administer. Current occupational exposures/hazards: Yes Cognitive needs: No Hearing needs: No Vision needs: Yes (reading glasses ) Meds Allergies Allergy/AdvReac Type Severity Reaction Status Date / Time No Known Allergies Allergy Verified 12/22/24 12:32 Home Medications ?Medication ?Instructions ?Recorded ?Confirmed ?Last Taken ?Type No Known Home Meds 02/14/25 02/14/25 Unknown History Exam Exam Date and Time: 02/14/25 Airway Mallampati Class: II TM Dist: >3cm Neck ROM: Full Loose/Missing/Broken Teeth: No Heart: rrr Lungs: ctab vesicular Other: diffusely erythematous back Assessment and Plan Assessment Anesthesia Assessment: Anesthesia Plan Discussed Final Anesthetic Review Family History of Problems with Anesthesia: No History of Problems with Anesthesia: No NPO: Yes ASA Class: II Final Preanesthetic Review: No Changes in Pt Med Stat, Meds/Allgs Chart Reviewed, Consent Obtained/Reviewed and Anes Risks/Benef Reviewed Patient Risk: Low Procedure Risk: Low Anesthetic Plan Anesthetic Plan: MAC: Disposition: Standard PACU
[2025-02-14 09:56] VITALS: BMI 32.6
[2025-02-14 09:59] VITALS: BP 146/93; PULSE 91; RESP 16; TEMP 36.6; O2SAT 96
--- NOTE | 2025-02-14 10:09 | MHC.SHP ---
Pre-Procedural Eval Section A - 24 Hr Update-Section A only Date of Service: 02/14/25 Section B - Complete if H&P > 30 days Chief Complaint: screening Relevant Family History (Specify if Yes): No Relevant Social History: None Present Medications: see Short Stay Collaborative assessment Medical History: Significant History (dyslipidemia, peripheral neuropathy) History of Previous Operations: Relevant previous surgery/procedure and date(s) (colonoscopy) Allergies: Allergies Allergy/AdvReac Type Severity Reaction Status Date / Time No Known Allergies Allergy Verified 12/22/24 12:32 Plan I have reviewed the history and physical and performed a pertinent physical examination on my patient. No changes have occurred unless specified. Time Spent With Patient Time: Total time managing care of this patient today ____ minutes.
[2025-02-14] MEDS: Lactated Ringers 1,000 ML 100 ML IVCONT (10:23)
--- NOTE | 2025-02-14 11:53 | P.OPN-COLO_ITS ---
Colonoscopy Operative Note Operative Note Date of Service: 02/14/25 Narrative: Operative Information Procedure Description: Colonoscopy Indication: screening Anesthesia: MAC COLONOSCOPY Instrument: Olympus variable stiffness pediatric scope 190L Colonoscopy Monitoring: Vital signs and clinical assessment, continuous EKG monitoring, Pulse oximetry, Carbon Dioxide monitoring and blood pressure monitoring were done throughout the procedure. Colon withdrawal time was 15 minutes. Procedure: The patient was placed in the left lateral decubitis position and pre-procedure medications were administered. After a digital rectal examination of the ano-rectum, the video colonoscope was inserted into the rectum and advanced through the colon to the cecum/TI. The colonoscope was slowly withdrawn in a retrograde panoramic fashion and the colon mucosa was carefully examined including a retroflexed view of the rectum. Findings and interventions are described below. Procedure Difficulty: moderate Findings: Terminal Ileum-normal Cecum:normal right sided retroflexion- normal Ascending Colon: normal Transverse Colon - 10-11 mm sessile polyp injected with epinephrine and removed with hot snare with one clip applied Descending Colon:normal Sigmoid Colon: 12-15 mm semi pedunculated polyp injected with epinephrine and removed with hot snare with x 2 clips applied to stalk remnant Rectum: Retroflexion with small internal hemorrhoids seen, grade I Anorectum - normal Intervention: hot snare, and epinpehrine, clips Colon preparation: [place] Bowel Preparation Scale Right colon; 2 Transverse colon: 2 Left colon; 2 (0 = Unprepared colon segment with mucosa not seen due to solid stool that cannot be cleared. 1 = Portion of mucosa of the colon segment seen, but other areas of the colon segment not well seen due to staining, residual stool and/or opaque liquid. 2 = Minor amount of residual staining, small fragments of stool and/or opaque liquid, but mucosa of colon segment seen well. 3 = Entire mucosa of colon segment seen well with no residual staining, small fragments of stool or opaque liquid) Impression and Post Procedure Diagnosis: colon polyps x 2 internal hemorrhoids Plan: High fiber diet leaflet Avoid straining at stool, epsom salts and sitz bath, anusol supps or cream Repeat Colonoscopy in 3 years or earlier if clinically indicated Above findings were reviewed with the patient and relevant handouts were provided if indicated.
[2025-02-14 11:59] VITALS: BP 123/75; PULSE 87; RESP 12; TEMP 37.2; O2SAT 96
[2025-02-14 12:00] VITALS: BP 114/81; PULSE 75; RESP 12; O2SAT 96
[2025-02-14 12:15] VITALS: BP 107/79; PULSE 76; RESP 12; O2SAT 96
== END 2025-02-14 12:45 | disposition home or self-care (01) ==
PROVIDERS: PCP Internal Medicine; Visit Provider Internal Medicine Gastroenterology
PROC: 0DJD8ZZ Inspection of Lower Intestinal Tract, Via Natural or Artificial Opening Endoscopic (ICD-10-PCS; CPT 45378; principal; 2025-02-14 11:40)
DX: Z12.11 Encounter for screening for malignant neoplasm of colon (principal); K64.8 Other hemorrhoids; D12.5 Benign neoplasm of sigmoid colon; D12.3 Benign neoplasm of transverse colon
CPT/HCPCS: 45385; 88305; J0168; J2003; J2405; J2704; J3010

== ENCOUNTER → 2025-02-14 08:22 | Outpatient (BNV) | payer BC, SELFPAY | PROVIDERS: PCP Internal Medicine; Visit Provider Internal Medicine Gastroenterology | DX: Z12.11 Encounter for screening for malignant neoplasm of colon (principal); K63.5 Polyp of colon | CPT/HCPCS: 45385 ==